=== PATIENT | male | born 1985 | race Caucasian/White ===

== ENCOUNTER 2018-05-03 08:35 | Emergency (ER) | payer OTHER ==
[2018-05-03 08:41] VITALS: BP 123/57
--- NOTE | 2018-05-03 10:43 | Emergency Department Report ---
ED Back Pain/Injury HPI - General Chief Complaint: Back Pain/Injury Stated Complaint: BACK PAIN 2WKS Time Seen by Provider: 05/03/18 11:40 Source: patient, family Limitations: Language Barrier - History of Present Illness Initial Comments: back pain x 2 weeks. Work is heavy lifting. Complaint: back pain Onset/Timin -: week(s) Similar Symptoms Previously: Yes Place: home Radiation: none Severity: moderate Severity scale (0 -10): 5 Quality: aching Consistency: intermittent Improves With: none Worsens With: none Context: while lifting Associated Symptoms: denies: confusion, weakness, chest pain, numbness, difficulty walking, cough, difficulty urinating, diaphoresis, incontinence, fever/chills, constipation, headaches, abdominal pain, loss of appetite, malaise, nausea/vomiting, rash, seizure, shortness of breath, syncope Treatments Prior to Arrival: other (OTC meds) - Related Data Previous Rx's Medication Instructions Recorded Last Taken Type Cyclobenzaprine [Flexeril] 10 mg PO TID PRN #12 tablet 05/03/18 Unknown Rx Ibuprofen [Motrin] 800 mg PO Q8HR PRN #12 tablet 05/03/18 Unknown Rx Allergies Allergy/AdvReac Type Severity Reaction Status Date / Time No Known Allergies Allergy Unverified 05/03/18 08:39 ED Review of Systems ROS: Stated complaint: BACK PAIN 2WKS Other details as noted in HPI Constitutional: denies: chills, fever Eyes: denies: eye discharge Respiratory: denies: cough, shortness of breath, wheezing Cardiovascular: denies: chest pain, palpitations, edema, syncope Gastrointestinal: denies: abdominal pain, nausea, vomiting, constipation, hematemesis, hematochezia Genitourinary: denies: urgency, dysuria, hematuria Musculoskeletal: back pain. denies: joint swelling, arthralgia, myalgia Skin: denies: rash Neurological: denies: headache, weakness, numbness, paresthesias, confusion, abnormal gait, vertigo ED Past Medical Hx - Past Medical History Medical history: no medical history Surgical history: no surgical history Psychiatric history: no pertinent history Family history: no significant family history - Social History Smoking Status: Never Smoker Alcohol use: none Drug use: none ED Back Pain Physical Exam - Exam General: Vital signs noted. No distress. Alert and acting appropriately. This is a 32-year-old male here complaining of left lower back pain for 2 weeks. He is stable and in no acute distress. Well-nourished well-developed. Back/Abdomen: No Abdominal Tenderness, No Perithoracic Tenderness, No Perilumbar Tenderness, No Sacroiliac Tenderness, No Flank Tenderness, No Straight Leg Raise Pain Neuro: Yes Normal Sensation (patient good color, sensation, movement and temperature.), Yes Normal DTR's (bilateral knee and ankle), Yes Normal Gait (normal gait, negative pronator drift and negative Romberg.), No Motor Weakness ED Course Vital Signs 05/03/18 08:40 Temperature 97.7 F Pulse Rate 88 Respiratory 16 Rate Blood Pressure 123/57 O2 Sat by Pulse 98 Oximetry - Reevaluation(s) Reevaluation #1: 05/03/18 11:50 Patient urinalysis is clear and awaiting in low back x-ray. He received Toradol 30 mg IM, Flexeril 10 mg by mouth and Trent 5/325 one tablet by mouth. Awaiting x-ray results. Reevaluation #2: 05/03/18 12:37 Patient's pain is better and he reports pain at 1/10. Ed Back Pain Tests - Tests Tests: Normal UA (normal), Normal X Rays (negative findings) ED Medical Decision Making - Lab Data Lab Results 05/03/18 Range/Units 11:15 Urine Color Yellow (Yellow) Urine Turbidity Clear (Clear) Urine pH 5.0 (5.0-7.0) Ur Specific Marion 1.025 (1.003-1.030) Urine Protein <15 mg/dl (Negative) mg/dL Urine Glucose (UA) Neg (Negative) mg/dL Urine Ketones Neg (Negative) mg/dL Urine Blood Neg (Negative) Urine Nitrite Neg (Negative) Urine Bilirubin Neg (Negative) Urine Urobilinogen < 2.0 (<2.0) mg/dL Ur Leukocyte Esterase Neg (Negative) Urine WBC (Auto) 1.0 (0.0-6.0) /HPF Urine RBC (Auto) 1.0 (0.0-6.0) /HPF U Epithel Cells (Auto) < 1.0 (0-13.0) /HPF Urine Mucus Few /HPF - Radiology Data Radiology results: report reviewed X-ray of lumbosacral spine reveals there are no acute abnormalities identified. This facilitated by radiologist's report. This area due to malfunction in radiologist. - Medical Decision Making This is a 32-year-old male here reports that he is having low back pain for 2 weeks. Pain is located in the left side. Back and neurological exam is normal. 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 I discussed x-ray results urinalysis result with him and he voiced understanding. He was given pain medication in emergency room initially sprained. I discussed the patient's that if his pain continues he needs to follow-up with orthopedic doctor or chiropractor and he voiced understanding. Patient discharged home in stable condition with prescriptions for Flexeril and Motrin. - Differential Diagnosis FX,Strain, subluxation, DDD, UTI Critical care attestation.: If time is entered above; I have spent that time in minutes in the direct care of this critically ill patient, excluding procedure time. ED Disposition Clinical Impression: Strain of lumbar paraspinal muscle Qualifiers: Encounter type: initial encounter Qualified Code(s): S39.012A - Strain of muscle, fascia and tendon of lower back, initial encounter Disposition: DC-01 TO HOME OR SELFCARE Is pt being admited?: No Does the pt Need Aspirin: No Condition: Stable Instructions: Low Back Strain (ED), Core Strengthening Exercises (GEN) Additional Instructions: Please take Flexeril for strain but appears to not drive or operate heavy machinery while taking this medication Rest for a couple days and he can use heating pad to her lower back. To relieve pain and relax muscle Take Motrin for pain but please not take this medication on an empty stomach as it can cause irritation to stomach lining If your condition worsens, return to emergency room otherwise follow-up with orthopedic doctor Referrals: SAÚL GARZA MD [Staff Physician] - 2-3 Days [facility] [Outside] - 2-3 Days Forms: Work/School Release Form(ED)
[2018-05-03 11:36] LABS: Bilirubin,Urine NEG (Negative); Blood,Urine NEG (Negative); Color,Urine Yellow (Yellow); Mucus,Urine FEW /HPF; Protein,Urine <15 mg/dL mg/dL (Negative); Urobilinogen,Urine < 2.0 mg/dL (<2.0)
[2018-05-03] MEDS ORDERED: FLEXERIL PO ONE (11:49)
[2018-05-03] MEDS ORDERED: NORCO 5/325 PO ONE (11:49)
[2018-05-03] MEDS ORDERED: TORADOL IM ONE (11:49)
--- NOTE | 2018-05-03 14:40 | XRay Report ---
PROCEDURE: XR SPINE LUMBOSACRAL 2-3V TECHNIQUE: 3 views of the lumbar spine HISTORY: low back pain ?2 weeks COMPARISON: None FINDINGS: Vertebral heights and alignment are maintained. Disc spaces are maintained. There is no fracture iden tified. There is no focal bony lesions seen. IMPRESSION: There is no acute abnormality identified. This document is electronically signed by Maria D Hancock MD., May 03 2018 11:49:22 AM ET
== END 2018-05-03 12:55 | disposition home or self-care (01) ==
LOC: ED 08:35
DX: S39.012A Strain of muscle, fascia and tendon of lower back, initial encounter (principal); X50.0XXA Overexertion from strenuous movement or load, initial encounter; Y93.89 Activity, other specified; Y92.099 Unspecified place in other non-institutional residence as the place of occurrence of the external cause; Y99.8 Other external cause status
CPT/HCPCS: 72100; 81001; 96372; 99284; J1885

== ENCOUNTER 2018-10-10 21:01 | Emergency (ER) | payer SELFPAY ==
--- NOTE | 2018-10-10 21:13 | Event Note ---
ED Screening Note Date of service: 10/10/18 Time: 21:11 ED Screening Note: This is a 32 y.o. M. that presents to the ER with left sided chest pain radiating to LUE for 30 minutes. Patient was eating dinner when symptoms started. Reports nausea This initial assessment/diagnostic orders/clinical plan/treatment(s) is/are subject to change based on patients health status, clinical progression and re- assessment by fellow clinical providers in the ED. Further treatment and workup at subsequent clinical providers discretion. Patient/guardian urged not to elope from the ED as their condition may be serious if not clinically assessed and managed. Initial orders include: Labs, EKG, & CXR
[2018-10-10 21:44] LABS: Basophils # (Auto) 0.1 K/mm3 (0.0-0.1); Eosinophils # (Auto) 0.4 K/mm3 (0.0-0.4); Eosinophils % (Auto) 5.4 % (0.0-4.3); Lymphocytes # (Auto) 2.2 K/mm3 (1.2-5.4); Lymphocytes % (Auto) 34.5 % (13.4-35.0); Mean Corpuscular HGB Conc 36 % (32-34); Mean Corpuscular Volume 91 fl (84-94); Monocytes # (Auto) 0.5 K/mm3 (0.0-0.8); Monocytes % (Auto) 7.3 % (0.0-7.3); Platelet Count 228 K/mm3 (140-440); Red Blood Count 4.89 M/mm3 (3.65-5.03); Red Cell Distribution Width 13.1 % (13.2-15.2)
[2018-10-10 21:45] LABS: Hematocrit 44.5 % (35.5-45.6); Hemoglobin 16.2 gm/dl (11.8-15.2)
[2018-10-10 22:06] LABS: BUN/Creatinine Ratio 13; Blood Urea Nitrogen 14 mg/dL (9-20); Calcium 9.3 mg/dL (8.4-10.2); Hemolysis Index 42
--- NOTE | 2018-10-10 22:15 | Emergency Department Report ---
ED Chest Pain HPI - General Chief Complaint: Chest Pain Stated Complaint: CHEST PAIN/LEFT ARM NUMBNESS Time Seen by Provider: 10/10/18 21:11 Source: patient Mode of arrival: Ambulatory Limitations: Language Barrier - History of Present Illness Initial Comments: Patient is a 32-year-old female presents to emergency room with complaints of left-sided chest pain. Patient states this chest pain as a 9 out of 10. Patient states pain is not radiating. Patient states his pain is worse with palpation and movement of his left arm. 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 Patient denies shortness of breath. Patient denies nausea vomiting. Patient denies past medical history. Patient denies history of diabetes and hypertension. MD Complaint: chest pain -: Sudden Onset: during rest Pain Location: left chest Pain Radiation: none Severity: severe Severity scale (0 -10): 9 Quality: sharp Consistency: constant Improves With: rest Worsens With: palpation, movement Context: trauma/injury re: denies: nausea, vomting, diaphoresis, dyspnea, sense of impending doom Other Symptoms: denies: cough, fever, syncope, rash, acid taste in mouth, leg swelling, palpitations, burping Treatments Prior to Arrival: none Aspirin use within the Past 7 Days: (0) No - Related Data On Oral Contraceptives: No Previous Rx's Medication Instructions Recorded Last Taken Type Cyclobenzaprine [Flexeril 10 MG 10 mg PO TID PRN #12 tablet 10/10/18 Unknown Rx TAB] Ibuprofen [Motrin 800 MG tab] 800 mg PO Q8HR PRN #15 tablet 10/10/18 Unknown Rx traMADol [Ultram] 50 mg PO Q4HR PRN #10 tablet 10/10/18 Unknown Rx Allergies Allergy/AdvReac Type Severity Reaction Status Date / Time No Known Allergies Allergy Unverified 05/03/18 08:39 Heart Score - HEART Score History: Slightly suspicious EKG: Normal Age: < 45 Risk factors: No known risk factors Troponin: < normal limit HEART Score: 0 ED Review of Systems ROS: Stated complaint: CHEST PAIN/LEFT ARM NUMBNESS Other details as noted in HPI Constitutional: denies: chills, fever Eyes: denies: eye pain, eye discharge, vision change ENT: denies: ear pain, throat pain Respiratory: denies: cough, shortness of breath, wheezing Cardiovascular: chest pain. denies: palpitations Endocrine: no symptoms reported Gastrointestinal: denies: abdominal pain, nausea, diarrhea Genitourinary: denies: urgency, dysuria Musculoskeletal: denies: back pain, joint swelling, arthralgia Skin: denies: rash, lesions Neurological: denies: headache, weakness, paresthesias Psychiatric: denies: anxiety, depression Hematological/Lymphatic: denies: easy bleeding, easy bruising ED Past Medical Hx - Past Medical History Previous Medical History?: No - Surgical History Past Surgical History?: No - Family History Family history: no significant - Social History Smoking Status: Never Smoker Substance Use Type: Alcohol - Medications Home Medications: Home Medications Medication Instructions Recorded Confirmed Last Taken Type Cyclobenzaprine [Flexeril 10 MG 10 mg PO TID PRN #12 tablet 10/10/18 Unknown Rx TAB] Ibuprofen [Motrin 800 MG tab] 800 mg PO Q8HR PRN #15 tablet 10/10/18 Unknown Rx traMADol [Ultram] 50 mg PO Q4HR PRN #10 tablet 10/10/18 Unknown Rx ED Physical Exam - General Limitations: Language Barrier General appearance: alert, in no apparent distress - Head Head exam: Present: atraumatic, normocephalic - Eye Eye exam: Present: normal appearance - ENT ENT exam: Present: mucous membranes moist - Neck Neck exam: Present: normal inspection - Respiratory Respiratory exam: Present: normal lung sounds bilaterally, chest wall tenderness. Absent: respiratory distress, wheezes, rales - Cardiovascular Cardiovascular Exam: Present: regular rate, normal rhythm. Absent: systolic murmur, diastolic murmur, rubs, gallop - GI/Abdominal GI/Abdominal exam: Present: soft, normal bowel sounds. Absent: distended, tenderness, guarding - Rectal Rectal exam: Present: deferred - Extremities Exam Extremities exam: Present: normal inspection - Back Exam Back exam: Present: normal inspection - Neurological Exam Neurological exam: Present: alert, oriented X3 - Psychiatric Psychiatric exam: Present: normal affect, normal mood - Skin Skin exam: Present: warm, dry, intact, normal color. Absent: rash ED Course Vital Signs 10/10/18 21:10 Temperature 98.6 F Pulse Rate 80 Respiratory 18 Rate Blood Pressure 125/78 O2 Sat by Pulse 90 Oximetry - Reevaluation(s) Reevaluation #1: I discussed all results the patient. Discussed plan of care with patient. Patient stable for discharge. Patient will be discharged home. Patient given discharge instructions. Patient voiced understanding of discharge instructions. Patient agrees with plan of care. All patient's questions answered 10/10/18 22:15 SHAD score - Shad Score Age > 65: (0) No Aspirin use within the Past 7 Days: (0) No 3 or more CAD Risk Factors: (0) No 2 or more Angina events in past 24 hrs: (0) No Known CAD with more than 50% Stenosis: (0) No Elevated Cardiac Markers: (0) No ST Deviation Greater than 0.5mm: (0) No SHAD Score: 0 ED Medical Decision Making - Lab Data Result diagrams: 10/10/18 21:35 10/10/18 21:35 - EKG Data -: EKG Interpreted by Me EKG shows normal: sinus rhythm, axis, intervals, QRS complexes, ST-T waves Rate: normal - Radiology Data Radiology results: report reviewed, image reviewed interpreted by me: No acute findings on chest x-ray - Medical Decision Making Patient is a 32-year-old male that presents emergency room with chest pain. Patient's chest pain is consistent with a chest wall muscle pain and muscle strain. Patient's chest pain is reproducible. Patient's cardiac workup negative. Patient EKG negative. Patient's chest x-ray negative. Patient's cardiac enzymes negative. Patient's heart score is 0. - Differential Diagnosis chest wall pain. Chest pain. Chest strain Critical care attestation.: If time is entered above; I have spent that time in minutes in the direct care of this critically ill patient, excluding procedure time. ED Disposition Clinical Impression: Chest pain Qualifiers: Chest pain type: unspecified Qualified Code(s): R07.9 - Chest pain, unspecified Chest wall muscle strain Qualifiers: Encounter type: initial encounter Qualified Code(s): S29.011A - Strain of muscle and tendon of front wall of thorax, initial encounter Disposition: TO HOME OR SELFCARE Is pt being admited?: No Does the pt Need Aspirin: No Condition: Stable Instructions: Chest Pain (ED), Muscle Strain (ED) Additional Instructions: Patient to follow-up with primary care in 2-3 days. Patient to return to ER if condition worsens. Patient states that Tylenol or ibuprofen when necessary for pain. Patient to take meds as directed. Patient to rest. Patient to avoid work until cleared by primary care. Patient to increase water. Patient also to avoid strenuous exercise until cleared by primary care Prescriptions: Cyclobenzaprine [Flexeril 10 MG TAB] 10 mg PO TID PRN #12 tablet PRN Reason: Muscle Spasm Ibuprofen [Motrin 800 MG tab] 800 mg PO Q8HR PRN #15 tablet PRN Reason: pain traMADol [Ultram] 50 mg PO Q4HR PRN #10 tablet PRN Reason: Pain Time of Disposition: 22:24 Print Language: ESTONIAN
[2018-10-10 23:26] VITALS: BP 132/80
--- NOTE | 2018-10-10 23:29 | XRay Report ---
CHEST 2 VIEWS INDICATION: Chest Pain. COMPARISON: None FINDINGS: Support devices: None. Heart: Within normal limits. Lungs/pleura: No acute air space or interstitial disease. No pneumothorax. Additional findings: None. IMPRESSION: 1. No acute findings. Signer Name: Jona Ring MD Signed: 10/10/2018 11:25 PM Workstation Name: [id number]
== END 2018-10-10 23:25 | disposition home or self-care (01) ==
LOC: ED 21:01
DX: S29.011A Strain of muscle and tendon of front wall of thorax, initial encounter (principal); Z79.1 Long term (current) use of non-steroidal anti-inflammatories (NSAID); Z79.899 Other long term (current) drug therapy; X50.0XXA Overexertion from strenuous movement or load, initial encounter; Y93.89 Activity, other specified; Y92.89 Other specified places as the place of occurrence of the external cause; Y99.8 Other external cause status
CPT/HCPCS: 36415; 71045; 71046; 80048; 84484; 85025; 93005; 93010; 99284